=== PATIENT | female | born 1960 | race American Indian/Alaskan Native ===

== ENCOUNTER 2017-11-25 13:34 | Inpatient (IN) | payer MEDICARE, MEDICAID ==
[2017-11-25] MEDS ORDERED: Albuterol-Ipratrop 3 mg / 0.5 (3 ml) UD ONE (15:26)
[2017-11-25] MEDS: Albuterol-Ipratrop 3 mg / 0.5 (3 ml) UD IH SCH ×2 (15:47→15:48)
[2017-11-25 15:56] LABS: BASO # 0.1 K/uL (0.0-0.2); BASO % 1.2 % (0.0-2.0); EOS # 0.2 K/uL (0.0-0.7); EOS % 4.4 % (0.0-4.0); HEMOGLOBIN 11.9 g/dL (11.0-16.0); LYMPH # 1.6 K/uL (1.0-4.3); LYMPH % 32.2 % (20.0-40.0); MEAN CELL VOLUME 87.9 fL (81.0-99.0); MEAN CORPUSCULAR HEMOGLOBIN 27.2 pg (27.0-31.0); MEAN CORPUSCULAR HGB CONC 30.9 g/dL (33.0-37.0); MEAN PLATELET VOLUME 10.7 fL (7.2-11.7); MONO # 0.4 K/uL (0.0-0.8); MONO % 8.6 % (0.0-10.0); NEUT # 2.6 K/uL (1.8-7.0); NEUT % 53.6 % (50.0-75.0); NRBC % 0.1 % (0.0-2.0); RBC 4.39 Mil/uL (3.80-5.20); RED CELL DISTRIBUTION WIDTH 14.1 % (11.5-14.5); WHITE BLOOD COUNT 4.8 K/uL (4.8-10.8)
--- NOTE | 2017-11-25 16:02 | RAD ---
Chest x-ray single frontal view History: Shortness of breath. Cough. Comparison: None available. Findings: Right hilar prominence. Hyperinflation suggestive for COPD and or emphysematous changes. Biapical pleural thickening with upper lobe granulomatous changes. Diffuse increased interstitial lung markings. Mild right mid lung zone atelectasis. Curvilinear nodular density seen at the medial aspect of the right lung base. Correlation with lateral view is recommended if clinically indicated. Right paratracheal prominence may represent prominent vasculature. Correlation with chest CT may be helpful if clinically indicated. Bibasilar breast and nipple shadows. Tortuous aorta. Degenerative changes in the spine and shoulders. Impression: Right hilar prominence. Hyperinflation suggestive for COPD and or emphysematous changes. Biapical pleural thickening with upper lobe granulomatous changes. Diffuse increased interstitial lung markings. Mild right mid lung zone atelectasis. Curvilinear nodular density seen at the medial aspect of the right lung base. Correlation with lateral view is recommended if clinically indicated. Right paratracheal prominence may represent prominent vasculature. Correlation with chest CT may be helpful if clinically indicated.
[2017-11-25 16:09] LABS: ALB/GLOB RATIO 1.1 (1.0-2.1); ALBUMIN 3.9 g/dL (3.5-5.0); ALT/SGPT 16 U/L (9-52); AST/SGOT 23 U/L (14-36); BLOOD UREA NITROGEN 11 mg/dL (7-17); CALCIUM 9.3 mg/dl (8.6-10.4); GFR AFRICAN-AMERICAN > 60; GFR NON-AFRICAN AMERICAN > 60
[2017-11-25] MEDS ORDERED: Magnesium Sulfate 1 gm in D5W 1 GM/100 ML BAG IVPB STA (16:11)
[2017-11-25] MEDS ORDERED: Magnesium Sulfate 1 gm in D5W 1 GM/100 ML BAG IVPB ONE (16:49)
--- NOTE | 2017-11-25 17:37 | C.PDOC ---
Time Seen by Provider: 11/25/17 14:18 Chief Complaint (Nursing): Shortness Of Breath History Per: Patient Onset/Duration Of Symptoms: Days Current Symptoms Are (Timing): Worse Current Respiratory Medications: See Home Med List Severity: Severe Associated Symptoms: Productive Cough Reports Recently: Treated By A Physician Additional History Per: Prior Records Past Medical History Reviewed: Historical Data, Nursing Documentation, Vital Signs Vital Signs: Last Vital Signs Temp 98.1 F 11/25/17 13:47 Pulse 100 H 11/25/17 16:56 Resp 14 11/25/17 16:56 BP 120/68 11/25/17 16:56 Pulse Ox 97 11/25/17 16:56 - Medical History PMH: Asthma, Bronchitis, COPD (on home O2) Family History: States: Unknown Family Hx - Social History Hx Tobacco Use: No (Quit) Hx Alcohol Use: No Hx Substance Use: No - Immunization History Hx Tetanus Toxoid Vaccination: No Hx Influenza Vaccination: No Hx Pneumococcal Vaccination: Yes Review Of Systems Except As Marked, All Systems Reviewed And Found Negative. Constitutional: Negative for: Fever Cardiovascular: Positive for: Chest Pain Respiratory: Positive for: Cough, Shortness of Breath, Wheezing. Negative for: Hemoptysis Gastrointestinal: Negative for: Vomiting, Abdominal Pain Skin: Negative for: Rash Neurological: Negative for: Weakness, Numbness Physical Exam - Physical Exam Appears: In Acute Distress (mild), Chronically Ill Skin: Normal Color, Warm, Dry, No Rash Head: Atraumatic, Normacephalic Eye(s): bilateral: PERRL, EOMI Neck: Normal ROM, Supple Cardiovascular: Rhythm Regular Respiratory: Decreased Breath Sounds Gastrointestinal/Abdominal: Soft, No Tenderness Back: No CVA Tenderness Extremity: Normal ROM, No Pedal Edema, No Calf Tenderness Neurological/Psych: Oriented x3, Normal Motor, Normal Sensation ED Course And Treatment - Laboratory Results Result Diagrams: 11/25/17 15:53 11/25/17 15:53 Lab Interpretation: No Acute Changes ECG: Interpreted By Me, Viewed By Me ECG Rhythm: Sinus Rhythm, Nonspecific Changes ECG Interpretation: No Acute Changes Rate From EC O2 Sat by Pulse Oximetry: 95 (on NC) Pulse Ox Interpretation: Other Interpretation Of Abnormal: borderline - Radiology CXR: Viewed By Me, Read By Radiologist CXR Interpretation: Yes: COPD Progress Note: Pt still feels SOB after meds. Will admit. Progress - Interventions Interventions:: Observation, Oxygen - Medications Administered Inhaled nebulized: Anticholinergic, Beta-2 agonist Intravenous: Corticosteroid, Other (Mg) - Data Reviewed Data Reviewed: Lab, Diagnostic imaging, EKG, Old records - Patient Status Patient status: Partially improved - Critical Care Citical Care: Excluding Proc Time Critical Care Time: 45 minutes - Continuity of Care Discussed patient case with:: Patient, ED Nurse, On-call PMD-pt unassigned - Patient Plan Patient Plan: Admission Disposition Discussed With : Celine John Comment: He accepted pt on his service. Doctor Will See Patient In The: Hospital Counseled Patient/Family Regarding: Studies Performed, Diagnosis - Disposition Disposition: HOSPITALIZED Disposition Time: 17:40 Condition: FAIR - Clinical Impression Clinical Impression: COPD exacerbation
[2017-11-26] MEDS: MethylPREDNISolone 40 mg Vial IVP SCH ×3 (00:19→12:09)
[2017-11-26] MEDS: Albuterol-Ipratrop 3 mg / 0.5 (3 ml) UD INH SCH ×4 (00:50→11:30)
[2017-11-26] MEDS: Benzocaine/Menthol (Cepacol) Lozenge MT PRN ×2 (01:21→05:58)
[2017-11-26 02:00] VITALS: RESP 20
[2017-11-26] MEDS ORDERED: Enoxaparin 40 mg Syringe SC SCH (10:00)
[2017-11-26] MEDS ORDERED: Theophylline 80 mg/15 ml Liq UD PO SCH (10:00)
[2017-11-26 16:16] VITALS: BP 101/67; PULSE 84; TEMP 98.4; O2SAT 96
--- NOTE | 2017-11-26 20:12 | CP.PCM.PN ---
Subjective - Date & Time of Evaluation Date of Evaluation: 11/26/17 Time of Evaluation: 14:00 - Subjective Subjective: PGY 2 Medicine Note- Dr. John's service 57 year old female presents with complaints of worsening shortness of breath over the past couple of days. She states that she came to the ER for further evaluation. She denies chest pain, palpitations, subjective fevers or chills, nausea, vomiting or diarrhea. PMHx- Asthma, COPD PSHx- Removal of breast cyst, C- Section Med- Advair, Spiriva, Ventolin, Theophylline Social- Former smoker of a 30 year period; (quit one year ago) Patient states that most of her family members smoke daily, denies alcohol or illicit drug use Allergies- NKDA PMD: Dr. Eve Rowe Objective - Vital Signs/Intake and Output Vital Signs (last 24 hours): Temp Pulse Resp BP Pulse Ox 98.4 F 84 20 101/67 96 11/26/17 16:00 11/26/17 16:00 11/26/17 16:00 11/26/17 16:00 11/26/17 16:00 Intake and Output: 11/26/17 11/27/17 18:59 06:59 Intake Total 660 Balance 660 - Labs Labs: 11/25/17 15:53 11/25/17 15:53 - Constitutional Appears: Non-toxic, No Acute Distress - Head Exam Head Exam: ATRAUMATIC, NORMAL INSPECTION - Eye Exam Eye Exam: EOMI, Normal appearance Pupil Exam: NORMAL ACCOMODATION - ENT Exam ENT Exam: Mucous Membranes Moist, Normal Exam - Neck Exam Neck Exam: Full ROM - Respiratory Exam Respiratory Exam: NORMAL BREATHING PATTERN - Cardiovascular Exam Cardiovascular Exam: REGULAR RHYTHM, +S1, +S2 - GI/Abdominal Exam GI & Abdominal Exam: Soft, Normal Bowel Sounds - Extremities Exam Extremities Exam: Full ROM - Back Exam Back Exam: Full ROM, NORMAL INSPECTION - Neurological Exam Neurological Exam: Alert, Awake, CN II-XII Intact, Oriented x3 - Psychiatric Exam Psychiatric exam: Normal Affect, Normal Mood - Skin Skin Exam: Dry, Normal Color, Warm Assessment and Plan - Assessment and Plan (Free Text) Assessment: COPD Exacerbation Afebrile No leukocytosis CXR- Hyperinflation suggestive COPD and or emphysematous changes. Biapical pleural thickening with upper lobe granulomatous changes. Diffuse increased interstitial lung markings. Refer to complete report. Patient on Duonebs, Solu-Medrol on Theophylline Oxygen on PRN Prophylactic Measure Lovenox SC
--- NOTE | 2017-11-28 10:23 | CARD ---
APPROVED REPORT EKG Measurement Heart [id number] <Conclusion> Normal sinus rhythm Baseline artifact Nonspecific T wave abnormality Abnormal ECG
--- NOTE | 2017-11-29 09:36 | HP ---
HISTORY OF PRESENT ILLNESS: A 57-year-old female with history of COPD admitted to hospital with chief complaint of shortness of breath, weakness, fatigue, tiredness. The patient came to the hospital, advised admission. The patient is a smoker. PHYSICAL EXAMINATION GENERAL: The patient is awake, alert, and oriented. VITAL SIGNS: Temperature 98, pulse 90. HEENT: Within normal limits. NECK: Supple. CHEST: Symmetrical. HEART: Regular. ABDOMEN: Soft. EXTREMITIES: No edema. IMPRESSION: The patient has chronic obstructive pulmonary disease, bronchitis. The patient is on bedrest, bronchodilators. Celine John MD
== END 2017-11-26 17:33 | disposition home or self-care (01) | DRG 192 ==
LOC: C.ER 13:34 → C.9E 17:41 → C.3T 21:31
PROVIDERS: ADMIT Internal Medicine Pulmonary Disease; ATTEND Internal Medicine Pulmonary Disease
DX: J44.1 Chronic obstructive pulmonary disease with (acute) exacerbation (principal); F17.210 Nicotine dependence, cigarettes, uncomplicated